=== PATIENT | female | born 1945 | race Two or more races ===

== ENCOUNTER 2019-11-17 14:59 | Emergency (ER) | payer OTHER ==
[~2019-11-17] VITALS: Ht 147.3 cm; Wt 47.4 kg
[2019-11-17 15:44] VITALS: BP 165/101
--- NOTE | 2019-11-17 18:05 | NUR ---
RING REMOVED WITH RING CUTTER AND GIVEN BACK TO PT. PT VERY TEARFUL AND STATES SHE IS SCARED SHE WILL . MD [facility] AND PT TO BE DISCHARGED HOME. NO PAIN/REDNESS OR S/SXS OF INFECTION. TAXI VOUCHER GIVEN
== END 2019-11-17 18:06 | disposition home or self-care (01) ==
LOC: ED 18:00
DX: M79.89 Other specified soft tissue disorders (principal); R60.9 Edema, unspecified; E11.9 Type 2 diabetes mellitus without complications
CPT/HCPCS: 99281